=== PATIENT | male | born 1990 ===

== ENCOUNTER 2017-08-22 20:05 | Emergency (ER) | payer OTHER ==
[2017-08-22 20:40] VITALS: BP 140/73
[2017-08-22] MEDS ORDERED: MOTRIN PO ONE (22:05)
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
== END 2017-08-22 22:53 | disposition home or self-care (01) ==
LOC: ED 20:05
DX: S39.012A Strain of muscle, fascia and tendon of lower back, initial encounter (principal); S13.4XXA Sprain of ligaments of cervical spine, initial encounter; V89.2XXA Person injured in unspecified motor-vehicle accident, traffic, initial encounter; Y93.89 Activity, other specified; Y99.8 Other external cause status; Y92.410 Unspecified street and highway as the place of occurrence of the external cause
CPT/HCPCS: 99282